=== PATIENT | male | born 1965 | race Caucasian/White ===

== ENCOUNTER 2020-12-27 05:36 | Emergency (ER) | payer BC, OTHER ==
[~2020-12-27] VITALS: Ht 175.3 cm; Wt 93.0 kg
--- NOTE | 2020-12-27 06:21 | EKG ---
[address] [address] Test Date: 2020-12-27 Test Time: 06:13:27 [facility] Department: Room: Gender: M Senior C Software Engineer: MUNIR : 1965 Requested By: ANIBAL VIEIRA Order Number: [id number] Reading MD: Measurements Intervals [place] Rate: 94 P: 39 [place]: 142 QRS: 28 QRSD: 86 T: 145 QT: 322 QTc: 408 Interpretive Statements SINUS RHYTHM T ABNORMALITY IN HIGH LATERAL LEADS ABNORMAL ECG RI6.02 No previous ECG available for comparison
[2020-12-27 06:38] LABS: BASO % 0 % (0-3); EOS # 0.1 x10^3/uL (0.0-0.7); EOS % 2 % (0-3); HEMATOCRIT 41.9 % (39.0-53.0); HEMOGLOBIN 14.6 g/dL (13.0-17.5); LYMPH # 1.2 x10^3/uL (1.0-4.8); LYMPH % 24 % (24-48); MEAN CORPUSCULAR HEMOGLOBIN 33 pg (25-35); MEAN CORPUSCULAR HGB CONC 35 g/dL (31-37); MEAN CORPUSCULAR VOLUME 93 fL (79-100); MONO # 0.9 x10^3/uL (0.0-1.1); MONO % 18 % (0-9); NEUT # 2.8 x10^3uL (1.8-7.7); NEUT % 55 % (31-73); PLATELET COUNT 148 x10^3/uL (140-400); RED BLOOD COUNT 4.49 x10^6/uL (4.30-5.70); RED CELL DISTRIBUTION WIDTH 13.8 % (11.5-14.5)
--- NOTE | 2020-12-27 06:43 | RAD ---
Study: XR CHEST 1V Indication: Chest pain. Comparison: None. Findings: Status post median sternotomy. The cardiomediastinal silhouette is at the upper limits of normal for size noting AP technique and lo w lung volumes. No airspace abnormality seen on the right. On the left, poorly delineated costophrenic angle and hazi ness of the lung bases. No pneumothorax. Impression: Possible small left pleural effusion with overlying volume loss noting interpretation is made difficu lt by low lung volumes. As deemed necessary, a PA and lateral view could allow for better characteriz ation. No airspace abnormality seen on the right. Electronically signed by: LONG DODSON MD (12/27/2020 6:41 AM) [facility]
[2020-12-27] MEDS ORDERED: CONTRAST GIVEN. MC PRN (06:45)
[2020-12-27] MEDS ORDERED: IOHEXOL 300 MG/ML 75 ML VIAL. IV ONE (06:45)
--- NOTE | 2020-12-27 06:46 | PHYS DOC ---
General Adult EDM: Chief Complaint: ABDOMINAL PAIN HPI: HPI: 55-year-old male presents with epigastric and periumbilical abdominal pain. This started 2 days ago and has been off and on. The patient felt like he needed to have a good bowel movement or maybe vomit. He describes the pain as a pressure sensation. The pain improved yesterday morning but came back yesterday afternoon. When the patient woke up this morning at 5 AM the pain was the greatest that it has been. He describes it as a moderate level. It is still a fullness/pressure type sensation. Patient denies drinking alcohol. He has been taking all his medications as prescribed. He has been having bowel movements b ut they are loose and a small amount. He still having flatulence and no difficulty urinating. The patient has a history of triple bypass 7 years ago. He has regular cardiac follow-up. He had a cardiac cath a year ago that was negative. He denies fever or chills. Review of Systems: Review of Systems: Constitutional: Denies fever or chills Eyes: Denies change in visual acuity HENT: Denies nasal congestion or sore throat Respiratory: Denies cough or shortness of breath Cardiovascular: Denies chest pain or edema GI: Periumbilical and epigastric abdominal pain. Denies nausea, vomiting, bloody stools or diarrhea : Denies dysuria Musculoskeletal: Denies back pain or joint pain Integument: Denies rash Neurologic: Denies headache, focal weakness or sensory changes Endocrine: Denies polyuria or polydipsia Lymphatic: Denies swollen glands Psychiatric: Denies depression or anxiety Current Medications: Current Meds: Current Medications Medications (Trade) Dose Ordered Sig/Emili Start Time Stop Time Status Last Admin Dose Admin Info (Do NOT chart on this entry -- for MONITORING) 1 each PRN DAILY PRN 12/27/20 06:45 12/29/20 06:44 Iohexol (Omnipaque 300 Mg/ml) 75 ml 1X ONCE 12/27/20 06:45 12/27/20 06:46 Allergies: Allergies: Allergies Coded Allergies Type Severity Reaction Last Updated Verified No Known Drug Allergies 12/27/20 No Physical Exam: PE: Constitutional: Well developed, well nourished, obese, no acute distress, non- toxic appearance. [] HENT: Normocephalic, atraumatic, bilateral external ears normal, oropharynx moist, no oral exudates, nose normal. [] Eyes: PERRLA, EOMI, conjunctiva normal, no discharge. [] Neck: Normal range of motion, no tenderness, supple, no stridor. [] Cardiovascular: Heart rate regular rhythm, no murmur [] Lungs & Thorax: Bilateral breath sounds clear to auscultation [] Abdomen: Bowel sounds normal, soft, mild periumbilical tenderness, no masses, no pulsatile masses. [] Skin: Warm, dry, no erythema, no rash. [] Back: No tenderness, no CVA tenderness. [] Extremities: No tenderness, no cyanosis, no clubbing, ROM intact, no edema. [] Neurologic: Alert and oriented X 3, normal motor function, normal sensory funct ion, no focal deficits noted. [] Psychologic: Affect normal, judgement normal, mood normal. [] EKG: EKG: Sinus rhythm, rate 94, normal axis, no ST elevations or depressions. [] Radiology/Procedures: Radiology/Procedures: [] Impressions: Study: XR CHEST 1V Indication: Chest pain. Comparison: None. Findings: Status post median sternotomy. The cardiomediastinal silhouette is at the upper limits of normal for size noting AP technique and low lung volumes. No airspace abnormality seen on the right. On the left, poorly delineated costophrenic angle and haziness of the lung bases. No pneumothorax. Impression: Possible small left pleural effusion with overlying volume loss noting interpretation is made difficult by low lung volumes. As deemed necessary, a PA and lateral view could allow for better characterization. No airspace abnormality seen on the right. Electronically signed by: LONG DODSON MD (12/27/2020 6:41 AM) [facility] DICTATED AND SIGNED BY: LONG DODSON MD DATE: 12/27/20 0640 CC: ANIBAL VIEIRA DO; MICHELLE LINARES DO ~MTH0 0 CT ABDOMEN+PELVIS W History: periumbilical pain 3 days Comparison: None. Technique: After administration of intravenous contrast, helical CT of the abdomen and pelvis was performed from the lung bases through the ischial tuberosities. Coronal and sagittal reconstructions were obtained. 60 mL of Omnipaque 300 were used. One or more of the following dose reduction techniques were utilized: Automated exposure control (AEC), Adjustment of mA and/or kV ac cording to patient size, Use of iterative reconstruction technique such as ASiR, CT scan done according to ALARA and image gently/image wisely Abdomen Findings: The visualized lung bases are clear. Liver measures 19.5 cm craniocaudad. The gallbladder, pancreas, spleen, and bilateral adrenal glands are normal. Symmetric renal enhancement. Punctate bilateral nonobstructive renal calculi. There is no hydronephrosis. The visualized loops of small bowel are normal. The visualized loops of large bowel are normal. There is no evidence of bowel obstruction. Appendix is normal. There is no free fluid. There is no mesenteric or retroperitoneal adenopathy. The abdominal aorta is normal in caliber. Mild aortoiliac atherosclerotic disease. Pelvis Findings: Urinary bladder is normal. No pelvic free fluid. There is no pelvic or inguinal adenopathy. Degenerative changes of the spine. 5 mm anterolisthesis at L2-3 with right L2 pars defect. Question thoracolumbar segmentation anomaly. Transitional lumbosacral anatomy with left pseudoarthrosis. Small fat-containing umbilical hernia. Small left greater than right fat- containing inguinal hernias. IMPRESSION: 1. No acute findings. 2. Nonobstructive punctate bilateral renal calculi. Electronically signed by: Serena Rivera MD (12/27/2020 7:53 AM) [id number] DICTATED AND SIGNED BY: SERENA RIVERA MD DATE: 12/27/20 0742 CC: ANIBAL VIEIRA DO; MICHELLE LINARES DO ~MTH0 0 Heart Score: C/O Chest Pain: No Risk Factors: Risk Factors: DM, Current or recent (<one month) smoker, HTN, HLP, family history of CAD, obesity. Risk Scores: Score 0 - 3: 2.5% MACE over next 6 weeks - Discharge Home Score 4 - 6: 20.3% MACE over next 6 weeks - Admit for Clinical Observation Score 7 - 10: 72.7% MACE over next 6 weeks - Early Invasive Strategies Course & Med Decision Making: Course & Med Decision Making Pertinent Labs and Imaging studies reviewed. (See chart for details) The patient's labs are unremarkable. His chest x-ray is unremarkable. His EKG is unremarkable. His troponin is negative. The CT scan of the abdomen and pelvis shows some small inguinal hernias and a small periumbilical hernia that only contains fat. I suspect the discomfort could be related to the umbilical hernia. There is really nothing that can be done at this time. I informed the patient this is something he should keep an eye on if it continues to bother him or gets worse that he may need surgery. Patient states verbal understanding. He is stable for discharge at this time. [] Dragon Disclaimer: Dragon Disclaimer: This electronic medical record was generated, in whole or in part, using a voice recognition dictation system. Departure Departure: Impression: Primary Impression: Abdominal pain Qualified Codes: R10.33 - Periumbilical pain Additional Impression: Umbilical hernia Qualified Codes: K42.9 - Umbilical hernia without obstruction or gangrene Disposition: 01 HOME / SELF CARE / HOMELESS Condition: STABLE Referrals: MICHELLE LINARES DO (PCP) Patient Instructions: Abdominal Pain, [id number], Hernia ANIBAL VIEIRA DO Dec 27, 2020 06:46
[2020-12-27 06:48] LABS: CALCIUM 8.6 mg/dL (8.5-10.1); CREATININE 1.3 mg/dL (0.7-1.3); GFR 56.9
[2020-12-27 06:54] LABS: ALBUMIN/GLOBULIN RATIO 0.8 (1.0-1.7); TOTAL BILIRUBIN 0.7 mg/dL (0.2-1.0); TOTAL PROTEIN 6.6 g/dL (6.4-8.2)
[2020-12-27] MEDS ORDERED: IV NORMAL SALINE 1,000ML 1,000 ML IV ONE (07:00)
[2020-12-27 07:30] VITALS: BP 113/62
--- NOTE | 2020-12-27 07:55 | RAD ---
CT ABDOMEN+PELVIS W History: periumbilical pain 3 days Comparison: None. Technique: After administration of intravenous contrast, helical CT of the abdomen and pelvis was per formed from the lung bases through the ischial tuberosities. Coronal and sagittal reconstructions wer e obtained. 60 mL of Omnipaque 300 were used. One or more of the following dose reduction techniques were utilized: Automated exposure control (AEC), Adjustment of mA and/or kV according to patient size , Use of iterative reconstruction technique such as ASiR, CT scan done according to ALARA and image g ently/image wisely Abdomen Findings: The visualized lung bases are clear. Liver measures 19.5 cm craniocaudad. The gallbladder, pancreas, spleen, and bilateral adrenal glands are normal. Symmetric renal enhancement. Punctate bilateral nonobstructive renal calculi. There is no hydronephro sis. The visualized loops of small bowel are normal. The visualized loops of large bowel are normal. There is no evidence of bowel obstruction. Appendix is normal. There is no free fluid. There is no mesenteric or retroperitoneal adenopathy. The abdominal aorta is normal in caliber. Mild aortoiliac atherosclerotic disease. Pelvis Findings: Urinary bladder is normal. No pelvic free fluid. There is no pelvic or inguinal adenopathy. Degenerative changes of the spine. 5 mm anterolisthesis at L2-3 with right L2 pars defect. Question t horacolumbar segmentation anomaly. Transitional lumbosacral anatomy with left pseudoarthrosis. Small fat-containing umbilical hernia. Small left greater than right fat-containing inguinal hernias. IMPRESSION: 1. No acute findings. 2. Nonobstructive punctate bilateral renal calculi. Electronically signed by: Merlin Rivera MD (12/27/2020 7:53 AM) [id number]
== END 2020-12-27 08:47 | disposition home or self-care (01) ==
LOC: ER 05:36
DX: K42.9 Umbilical hernia without obstruction or gangrene (principal); R10.33 Periumbilical pain; R10.13 Epigastric pain
CPT/HCPCS: 36415; 71045; 74177; 80053; 83690; 84484; 85025; 93005; 96360; 99285; J7030; Q9967